=== PATIENT | female | born 1980 | race Caucasian/White ===

== ENCOUNTER 2017-11-28 17:30 | Emergency (ER) | payer OTHER ==
[2017-11-28 17:47] VITALS: BP 94/59
--- NOTE | 2017-11-28 17:47 | UC ---
Ear Complaint HPI - HPI Summary HPI Summary: 37 yo female presents with right ear pain for the last 3 days. Also has a crusty rash/scab to the right corner of her mouth which has been there for abut a week to 10 days. Denies fever, chills, sinus symptoms, sore throat, cough, SOB , chest pain. - History of Current Complaint Chief Complaint: UCGeneralIllness Stated Complaint: EAR COMPLAINT Time Seen by Provider: 11/28/17 17:47 Hx Obtained From: Patient Hx Last Menstrual Period: 11/26/17 Onset/Duration: Gradual Onset Severity Initially: Mild Severity Currently: Mild Pain Intensity: 3 Pain Scale Used: 0-10 Numeric - Allergies/Home Medications Allergies/Adverse Reactions: Allergies Allergy/AdvReac Type Severity Reaction Status Date / Time sulfamethoxazole Allergy Anaphylatic Verified 11/28/17 17:39 [From Bactrim] Shock trimethoprim [From Bactrim] Allergy Anaphylatic Verified 11/28/17 17:39 Shock Home Medications: Home Medications Mite,D.farinae-D.pteronyssinus [Odactra 12 Sq-Hdm] 1 sub SL DAILY 11/28/17 [ History Confirmed 11/28/17] OLANzapine TAB* [Zyprexa 10 MG TAB*] 10 mg PO DAILY 11/28/17 [History Confirmed 11/28/17] PMH/Surg Hx/FS Hx/Imm Hx Previously Healthy: Yes Psychological History: Bipolar Disorder Other History Of: Negative For: Anticoagulant Therapy - Surgical History Surgical History: None - Family History Known Family History: Positive: None - Social History Occupation: Employed Full-time Lives: With Family Alcohol Use: None Substance Use Type: None Smoking Status (MU): Former Smoker - Immunization History Most Recent Tetanus Shot: pt does not know Review of Systems Constitutional: Negative Skin: Other - Rash right mouth Eyes: Negative ENT: Ear Ache Respiratory: Negative Cardiovascular: Negative Gastrointestinal: Negative Neurovascular: Negative Neurological: Negative Psychological: Negative All Other Systems Reviewed And Are Negative: Yes Physical Exam - Summary Physical Exam Summary: GENERAL: NAD. WDWN. No pain distress. SKIN: Right corner of mouth: honey-crusted lesion approx 4mm in size. NTTP. No active drainage or bleeding. HEENT: Head: AT/NC Eyes: EOM intact. Conjunctiva clear without inflammation or discharge. Ears: Hearing grossly normal. TMs intact, no bulging, erythema, or edema. Nose: Nasal mucosa pink and moist. NTTP maxillary and frontal sinus. Throat: Posterior oropharynx without exudates, erythema, or tonsillar enlargement. Uvula midline. NECK: Supple. Nontender. No lymphadenopathy. CHEST: CTAB. No r/r/w. No accessory muscle use. Breathing comfortably and in no distress. CV: RRR. Without m/r/g. Pulses intact. Brisk cap refill. NEURO: Alert. CN II-XII grossly intact. PSYCH: Age appropriate behavior. Triage Information Reviewed: Yes Vital Signs: Initial Vital Signs Temp 98 F 11/28/17 17:41 Pulse 72 11/28/17 17:41 Resp 18 11/28/17 17:41 BP 94/59 11/28/17 17:41 Pulse Ox 100 11/28/17 17:41 Ear Complaint Course/Dx - Course Course Of Treatment: Impetigo - bactroban. - Differential Dx/Diagnosis Provider Diagnoses: Impetigo Discharge - Sign-Out/Discharge Documenting (check all that apply): Discharge/Admit/Transfer - Discharge Plan Condition: Stable Disposition: HOME Prescriptions: Mupirocin 2% OINT* [Bactroban 2 % Oint*] 1 applic TOPICAL BID #1 tube Patient Education Materials: Impetigo (ED) Referrals: Casi Gutierrez MD [Primary Care Provider] - Additional Instructions: If you develop a fever, shortness of breath, chest pain, new or worsening symptoms - please call your PCP or go to the ED. - Billing Disposition and Condition Condition: STABLE Disposition: HOME
== END 2017-11-28 18:12 | disposition home or self-care (01) ==
LOC: UCEAST 17:30
DX: L01.00 Impetigo, unspecified (principal); Z88.1 Allergy status to other antibiotic agents; Z87.891 Personal history of nicotine dependence
CPT/HCPCS: 99212; G0463

== ENCOUNTER 2018-10-21 17:59 | Emergency (ER) | payer OTHER ==
[2018-10-21 20:25] VITALS: BP 105/62
--- NOTE | 2018-10-21 21:11 | UC ---
Hand/Wrist HPI - HPI Summary HPI Summary: 37-year-old female presents with complaints of right ulnar hand pain. States approximately a week and a half ago she became angry and punched a wooden bedside stand with her right hand. States had some pain and swelling initially after the injury however pain did improve. States today she started noticing some more discomfort in the hand especially when doing some repetitive motion activities. Denies ecchymosis, erythema, edema, numbness or tingling. - History Of Current Complaint Chief Complaint: UCUpperExtremity Stated Complaint: HAND INJURY Time Seen by Provider: 10/21/18 20:29 Hx Obtained From: Patient Hx Last Menstrual Period: [id number] Pain Intensity: 1 - Allergies/Home Medications Allergies/Adverse Reactions: Allergies Allergy/AdvReac Type Severity Reaction Status Date / Time sulfamethoxazole Allergy Anaphylatic Verified 10/21/18 20:26 [From Bactrim] Shock trimethoprim [From Bactrim] Allergy Anaphylatic Verified 10/21/18 20:26 Shock PMH/Surg Hx/FS Hx/Imm Hx Psychological History: Schizophrenia Other History Of: Negative For: Anticoagulant Therapy - Surgical History Surgical History: None - Family History Known Family History: Positive: Non-Contributory - Social History Occupation: Employed Full-time Lives: With Family Alcohol Use: None Substance Use Type: None Smoking Status (MU): Former Smoker - Immunization History Most Recent Tetanus Shot: pt does not know Review of Systems All Other Systems Reviewed And Are Negative: Yes Constitutional: Positive: Negative Skin: Negative: Rash, Bruising Respiratory: Positive: Negative Cardiovascular: Positive: Negative Gastrointestinal: Positive: Negative Genitourinary: Positive: Negative Motor: Negative: Weakness Neurovascular: Negative: Decreased Sensation Musculoskeletal: Positive: Other: - See HPI Neurological: Positive: Negative Is Patient Immunocompromised?: No Physical Exam - Summary Physical Exam Summary: GENERAL APPEARANCE: Well developed, well nourished, alert and cooperative, and appears to be in no acute distress. CARDIAC: Normal S1 and S2. No S3, S4 or murmurs. Rhythm is regular. There is no peripheral edema, cyanosis or pallor. Extremities are warm and well perfused. Capillary refill is less than 2 seconds. Peripheral pulses intact. LUNGS: Clear to auscultation without rales, rhonchi, wheezing or diminished breath sounds. ABDOMEN: Positive bowel sounds. Soft, nondistended, nontender. No guarding or rebound. No masses or hepatosplenomegally. MUSKULOSKELETAL: ROM intact to all extremities. No joint erythema or tenderness. Normal muscular development. EXTREMITIES: No point tenderness, decreased range of motion, ecchymosis, or edema of the right hand. Circulation and sensation were intact. SKIN: Skin normal color, texture and turgor with no lesions or eruptions. Triage Information Reviewed: Yes Vital Signs: Initial Vital Signs Temp 98.8 F 10/21/18 20:17 Pulse 66 10/21/18 20:17 Resp 16 10/21/18 20:17 BP 105/62 10/21/18 20:17 Pulse Ox 99 10/21/18 20:17 Vital Signs Reviewed: Yes Hand/Wrist Course/Dx - Course Course Of Treatment: 37-year-old female presents with complaints of right ulnar hand pain. States approximately a week and a half ago she became angry and punched a wooden bedside stand with her right hand. States had some pain and swelling initially after the injury however pain did improve. States today she started noticing some more discomfort in the hand especially when doing some repetitive motion activities. Denies ecchymosis, erythema, edema, numbness or tingling. Afebrile. Vital signs stable. Exam was essentially unremarkable with no point tenderness, decreased range of motion, ecchymosis, or edema of the right hand. Circulation and sensation were intact. X-ray was negative for fracture. Recommending conservative treatment for a contusion of the right hand. She is to follow-up with her primary care provider in 7 days if symptoms do not improve. anticipatory guidance and warning symptoms reviewed with the patient. Verbalized understanding and agrees to plan of care. - Differential Dx/Diagnosis Differential Diagnosis/HQI/PQRI: Contusion, Dislocation, Fracture Provider Diagnosis: Contusion of right hand Discharge - Sign-Out/Discharge Documenting (check all that apply): Patient Departure All imaging exams completed and their final reports reviewed: No - Discharge Plan Condition: Stable Disposition: HOME Patient Education Materials: Contusion in Adults (ED) Referrals: Otilia Segundo NP [Primary Care Provider] - 7 Days (If no improvement.) Additional Instructions: The x-ray performed in the clinic tonight showed no evidence of a fracture. I suspect that you have a contusion of the hand. Rest the hand. Avoid heavy lifting or strenuous activities. Apply ice for 15-20 minutes to the affected area for 15-20 minutes at least 4 times a day for next few days. Keep the hand elevated at the level of your heart to reduce any swelling. Take acetaminophen (Tylenol) or ibuprofen (Advil, Motrin) according to directions as needed for pain. Follow up with your primary care provider in 7 days if no improvement in symptoms. - Billing Disposition and Condition Condition: STABLE Disposition: Home
== END 2018-10-21 21:30 | disposition home or self-care (01) ==
LOC: UCEAST 17:59
DX: S60.221A Contusion of right hand, initial encounter (principal); W22.09XA Striking against other stationary object, initial encounter; Y92.9 Unspecified place or not applicable; Z88.2 Allergy status to sulfonamides; Z87.891 Personal history of nicotine dependence
CPT/HCPCS: 99211; G0463

== ENCOUNTER 2019-01-05 19:29 | Emergency (ER) | payer OTHER ==
--- NOTE | 2019-01-05 19:45 | UC ---
Complaint Female HPI - HPI Summary HPI Summary: 38 yo female presents with lower abdominal pain. She tells me that for the last 3-4 days she has been having lower abdominal cramping. She mentions that she has been urinating more frequently and is concerned she may have a UTI. She also notes some vaginal discharge with a "different" odor. Her LMP was 1 month ago and she states she is 2-3 days late for this this month. Her last sexual intercourse with a male partner was 2 months ago, but has had a period since that time and said that pt was "clean". She did have sexual intercourse with a new female about a month ago and states toys were used and she is unsure if the toys or partner was clean. She also mentions that she has been feeling fatigued and generally "achy" over the last week or so. Denies fever, chills, SOB, n/v/d/ c, flank pain, or hematuria. - History Of Current Complaint Stated Complaint: ABD PAIN, FREQUENT URINATION Time Seen by Provider: 01/05/19 19:45 Hx Obtained From: Patient Hx Last Menstrual Period: [id number] Onset/Duration: Gradual Onset Severity Initially: Mild Severity Currently: Mild Pain Intensity: 3 Pain Scale Used: 0-10 Numeric - Allergies/Home Medications Allergies/Adverse Reactions: Allergies Allergy/AdvReac Type Severity Reaction Status Date / Time sulfamethoxazole Allergy Anaphylatic Verified 01/05/19 20:12 [From Bactrim] Shock trimethoprim [From Bactrim] Allergy Anaphylatic Verified 01/05/19 20:12 Shock PMH/Surg Hx/FS Hx/Imm Hx Psychological History: Bipolar Disorder Other History Of: Negative For: Anticoagulant Therapy - Surgical History Surgical History: None - Family History Known Family History: Positive: None - Social History Lives: With Family Alcohol Use: None Substance Use Type: None Smoking Status (MU): Former Smoker - Immunization History Most Recent Tetanus Shot: pt does not know Review of Systems All Other Systems Reviewed And Are Negative: Yes Constitutional: Positive: Fatigue Skin: Positive: Negative Respiratory: Positive: Negative Cardiovascular: Positive: Negative Gastrointestinal: Positive: Abdominal Pain Genitourinary: Positive: Frequency, Vaginal/Penile Discharge Neurovascular: Positive: Negative Neurological: Positive: Negative Psychological: Positive: Negative Physical Exam - Summary Physical Exam Summary: GENERAL: NAD. WDWN. No pain distress. SKIN: No rashes, sores, lesions, or open wounds. NECK: Supple. Nontender. No lymphadenopathy. CHEST: CTAB. No r/r/w. No accessory muscle use. Breathing comfortably and in no distress. CV: RRR. Without m/r/g. Pulses intact. Cap refill <2seconds ABDOMEN: Soft. NTTP. No distention or guarding. No CVA tenderness. Bowel sounds present NEURO: Alert. PSYCH: Age appropriate behavior. Triage Information Reviewed: Yes Vital Signs: Laboratory Tests 01/05/19 01/05/19 19:59 20:02 POC Urine Color Yellow POC Urine Clarity Clear POC Urine pH 6.5 POC Ur Specif [place] 1.010 POC Urine Protein Negative POC Ur Glucose (UA) Negative POC Urine Ketones Negative POC Urine Blood Trace-lysed A POC Urine Nitrite Negative POC Urine Bilirubin Negative POC Urine Urobilinogen 0.2 POC U Leukocyte Esteras Negative POC Ur Test Negative Vital Signs: Temp Pulse Resp BP Pulse Ox 100.0 F 75 16 93/59 99 01/05/19 20:06 01/05/19 20:06 01/05/19 20:06 01/05/19 20:06 01/05/19 20:06 Vital Signs Reviewed: Yes Pelvic Exam: Positive: External Exam Normal, No Cerv. Motion Tender, No Masses, Discharge - Thick yellow/white from cervix, Other - Assisted by Kayleigh SUTHERLAND. Negative: Active Bleeding, Blood, Lesions, Mass, Tender w/ Cervical Motion, Tender Adnexa, Tender Uterus, Ulcers Complaint Female Dx - Course Course Of Treatment: BP slightly low today, but trending over the last few months from her past visits - this seems her average. Her UA and are negative. Her pelvic exam revealed thick yellow/white discharge, which seems most consistent with vaginosis and/or chlamydia. Cultures were obtained for affirm and GC/C. Given her recent sexual intercourse with a new partner - I recommended treatment for GC/C at this time and she was agreeable to this. In the clinic pt was given ceftriaxone 250mg and azithroymcin 1gm. Will also rx for flagyl to treat for BV. Will call her with culture results. - Differential Dx/Diagnosis Provider Diagnosis: Lower abdominal pain, Vaginal discharge Discharge - Sign-Out/Discharge Documenting (check all that apply): Patient Departure All imaging exams completed and their final reports reviewed: No Studies - Discharge Plan Condition: Stable Disposition: HOME Prescriptions: metroNIDAZOLE [Flagyl] 500 mg PO BID #14 tablet Patient Education Materials: Bacterial Vaginosis (ED), Chlamydia (ED) Referrals: Casi Gutierrez MD [Primary Care Provider] - Additional Instructions: If you develop a fever, shortness of breath, chest pain, new or worsening symptoms - please call your PCP or go to the ED immediately. 1) Your exam today showed some thick yellowish/white discharge from your cervix. This appears most consistent with bacterial vaginosis or chlamydia. 2) You were treated for gonorrhea and chlamydia in the clinic today 3) The prescription for Flagyl is to treat bacterial vaginosis 4) Samples were obtained today to test for yeast, gonorrhea, chlamydia, and bacterial vaginosis and should be back within 2-3 days. Please call our clinic if you have not heard from us by that time regarding your results. - Billing Disposition and Condition Condition: STABLE Disposition: Home
[2019-01-05 20:11] VITALS: BP 93/59
[2019-01-05] MEDS ORDERED: Lidocaine 1%** 5 ML VIAL IM ONE (20:44)
[2019-01-05] MEDS ORDERED: Azithromycin TAB* 250 MG PO ONE (20:44)
[2019-01-05] MEDS ORDERED: cefTRIAXone VIAL(*) 250 MG VIAL IM ONE (20:44)
[2019-01-07 12:55] LABS: Trichomonas vaginalis Result Negative (Negative)
[2019-01-07 13:15] LABS: Neisseria gonorrhoeae (GC) RNA Negative (Negative)
--- NOTE | 2019-01-08 19:12 | UC ---
- Progress Note Progress Note: Pt called to ask about results Notified of neg Gc/C but positive BV. She has not started flagyl yet as she wishes to drink this weekend - I advised her to try OTC Course/Dx - Diagnoses Provider Diagnoses: Lower abdominal pain, Vaginal discharge Discharge - Sign-Out/Discharge All imaging exams completed and their final reports reviewed: No Studies - Discharge Plan Condition: Stable Disposition: HOME Prescriptions: metroNIDAZOLE [Flagyl] 500 mg PO BID #14 tablet Patient Education Materials: Bacterial Vaginosis (ED), Chlamydia (ED) Referrals: Casi Gutierrez MD [Primary Care Provider] - Additional Instructions: If you develop a fever, shortness of breath, chest pain, new or worsening symptoms - please call your PCP or go to the ED immediately. 1) Your exam today showed some thick yellowish/white discharge from your cervix. This appears most consistent with bacterial vaginosis or chlamydia. 2) You were treated for gonorrhea and chlamydia in the clinic today 3) The prescription for Flagyl is to treat bacterial vaginosis 4) Samples were obtained today to test for yeast, gonorrhea, chlamydia, and bacterial vaginosis and should be back within 2-3 days. Please call our clinic if you have not heard from us by that time regarding your results. - Billing Disposition and Condition Condition: STABLE Disposition: Home
== END 2019-01-05 21:40 | disposition home or self-care (01) ==
LOC: UCEAST 19:29
DX: R10.10 Upper abdominal pain, unspecified (principal); N89.8 Other specified noninflammatory disorders of vagina; F31.9 Bipolar disorder, unspecified; Z87.891 Personal history of nicotine dependence; Z88.2 Allergy status to sulfonamides
CPT/HCPCS: 81003; 84702; 87086; 87480; 87491; 87510; 87591; 87661; 96372; 99212; A9270-GY; G0463; J0696

== ENCOUNTER 2019-04-26 17:46 | Emergency (ER) | payer OTHER ==
[2019-04-26 18:09] VITALS: BP 113/61
--- NOTE | 2019-04-26 18:47 | UC ---
Throat Pain/Nasal Brad HPI - HPI Summary HPI Summary: 38-year-old female comes in with a chief complaint of upper respiratory tract infection symptoms for 17 days. She has yellow rhinorrhea has a lot of sinus pressure she has postnasal drip she does have a cough. With the cough she was able to clear her secretions in her chest. Not short of breath other than the coughing episodes. No recent fevers. She has tried some by mouth Sudafed which doesn't seem to help much. - History of Current Complaint Chief Complaint: UCRespiratory Stated Complaint: COLD AND A COUGH Time Seen by Provider: 04/26/19 18:37 Hx Last Menstrual Period: 2 wks ago Pain Intensity: 0 - Allergies/Home Medications Allergies/Adverse Reactions: Allergies Allergy/AdvReac Type Severity Reaction Status Date / Time sulfamethoxazole Allergy Anaphylatic Verified 04/26/19 18:09 [From Bactrim] Shock trimethoprim [From Bactrim] Allergy Anaphylatic Verified 04/26/19 18:09 Shock PMH/Surg Hx/FS Hx/Imm Hx Previously Healthy: Yes Other History Of: Negative For: Anticoagulant Therapy - Surgical History Surgical History: None - Family History Known Family History: Positive: None, Non-Contributory - Social History Alcohol Use: Rare Substance Use Type: None Smoking Status (MU): Former Smoker - Immunization History Most Recent Tetanus Shot: pt does not know Review of Systems All Other Systems Reviewed And Are Negative: Yes Constitutional: Positive: Other - SEE HPI Skin: Positive: Negative Eyes: Positive: Negative ENT: Positive: Sore Throat, Nasal Discharge, Sinus Congestion, Sinus Pain/ Tenderness Respiratory: Positive: Cough, Other - SEE HPI Cardiovascular: Positive: Negative Gastrointestinal: Positive: Negative Motor: Positive: Negative Neurovascular: Positive: Negative Musculoskeletal: Positive: Negative Neurological: Positive: Negative Psychological: Positive: Negative Is Patient Immunocompromised?: No Physical Exam Triage Information Reviewed: Yes Appearance: No Pain Distress, Well-Nourished, Ill-Appearing - MILD Vital Signs: Initial Vital Signs Temp 98.9 F 04/26/19 18:07 Pulse 80 04/26/19 18:07 Resp 16 04/26/19 18:07 BP 113/61 04/26/19 18:07 Pulse Ox 99 04/26/19 18:07 Vital Signs Reviewed: Yes Eyes: Positive: Conjunctiva Clear ENT: Positive: Pharyngeal erythema, Nasal congestion, Nasal drainage, TMs normal Neck: Positive: Supple Respiratory: Positive: Lungs clear, Normal breath sounds, No respiratory distress Cardiovascular: Positive: RRR Musculoskeletal: Positive: Strength Intact, ROM Intact Neurological: Positive: Alert Psychological: Positive: Age Appropriate Behavior Skin Exam: Normal Throat Pain/Nasal Course/Dx - Differential Dx/Diagnosis Provider Diagnosis: Sinusitis Discharge ED - Sign-Out/Discharge Documenting (check all that apply): Patient Departure All imaging exams completed and their final reports reviewed: No Studies - Discharge Plan Condition: Stable Disposition: HOME Prescriptions: Amoxicillin/Clavulanate TAB* [Augmentin TAB 875*] 875 mg PO BID #20 tab Fluticasone NASAL SPRAY 50MCG* [Flonase NASAL SPRAY 50MCG*] 2 spray BOTH NARES DAILY #1 btl Patient Education Materials: Sinusitis (ED) Referrals: Casi Gutierrez MD [Primary Care Provider] - Additional Instructions: FOLLOW UP WITH YOUR DOCTOR IF NOT COMPLETELY IMPROVED. GET RECHECKED SOONER IF YOUR CONDITION WORSENS OR ANY QUESTIONS OR CONCERNS. - Billing Disposition and Condition Condition: STABLE Disposition: Home
== END 2019-04-26 19:01 | disposition home or self-care (01) ==
LOC: UCEAST 17:46
DX: J32.9 Chronic sinusitis, unspecified (principal); Z88.2 Allergy status to sulfonamides; Z87.891 Personal history of nicotine dependence
CPT/HCPCS: 99212; G0463

== ENCOUNTER 2019-05-07 16:01 | Emergency (ER) | payer OTHER ==
[2019-05-07 16:25] VITALS: BP 107/67
--- NOTE | 2019-05-07 16:50 | UC ---
Complaint Female HPI - HPI Summary HPI Summary: The patient is a 38-year-old female with vaginal burning 3 days. Today she just finished up a course of Augmentin for a sinus infection. She has no dysuria. She denies any vaginal itching. She has never had a vaginal yeast infection. - History Of Current Complaint Chief Complaint: UCGU Stated Complaint: DISCOMFORT Hx Obtained From: Patient Hx Last Menstrual Period: 04/13/19 Onset/Duration: Gradual Onset, Lasting Days Timing: Constant Severity Initially: Mild Severity Currently: Moderate Pain Intensity: 4 Pain Scale Used: 0-10 Numeric Character: Burning Aggravating Factor(s): Nothing Alleviating Factor(s): Nothing Associated Signs And Symptoms: Positive: Vaginal Discharge - ?. Negative: Fever , Back Pain, Vaginal Bleeding/Discharge, Nausea, Vomiting(# Of Episodes =), Genital Swelling, Genital Blisters, Retained Foregin Body (Specify) - Allergies/Home Medications Allergies/Adverse Reactions: Allergies Allergy/AdvReac Type Severity Reaction Status Date / Time sulfamethoxazole Allergy Anaphylatic Verified 05/07/19 16:25 [From Bactrim] Shock trimethoprim [From Bactrim] Allergy Anaphylatic Verified 05/07/19 16:25 Shock PMH/Surg Hx/FS Hx/Imm Hx Previously Healthy: Yes Other History Of: Negative For: Anticoagulant Therapy - Surgical History Surgical History: None - Family History Known Family History: Positive: Non-Contributory - Social History Alcohol Use: Rare Substance Use Type: None Smoking Status (MU): Former Smoker Length of Time of Smoking/Using Tobacco: 2 months - Immunization History Most Recent Tetanus Shot: pt does not know Review of Systems All Other Systems Reviewed And Are Negative: Yes Constitutional: Positive: Negative Skin: Positive: Negative Eyes: Positive: Negative ENT: Positive: Negative Respiratory: Positive: Negative Cardiovascular: Positive: Negative Gastrointestinal: Positive: Negative Genitourinary: Positive: Negative Motor: Positive: Negative Neurovascular: Positive: Negative Musculoskeletal: Positive: Negative Neurological: Positive: Negative Psychological: Positive: Negative Physical Exam Triage Information Reviewed: Yes Appearance: Well-Appearing, No Pain Distress, Well-Nourished Vital Signs: Initial Vital Signs Temp 99.5 F 05/07/19 16:17 Pulse 71 05/07/19 16:17 Resp 16 05/07/19 16:17 BP 107/67 05/07/19 16:17 Pulse Ox 100 05/07/19 16:17 Vital Signs Reviewed: Yes Eyes: Positive: Conjunctiva Clear ENT: Positive: Hearing grossly normal. Negative: Nasal congestion, Nasal drainage, Trismus, Muffled voice, Hoarse voice Neck: Positive: Supple, Nontender, No Lymphadenopathy Respiratory: Positive: Lungs clear, Normal breath sounds, No respiratory distress Cardiovascular: Positive: RRR, No Murmur, Pulses Normal Pelvic Exam: Positive: Discharge - thin vaginal d/c. Negative: External Exam Normal - white curdy d/c on vulva/erythems Musculoskeletal: Positive: ROM Intact, No Edema Neurological: Positive: Alert Psychological Exam: Normal Skin Exam: Normal Complaint Female Dx - Differential Dx/Diagnosis Provider Diagnosis: Vulvovaginitis due to yeast Discharge ED - Sign-Out/Discharge Documenting (check all that apply): Patient Departure All imaging exams completed and their final reports reviewed: No Studies - Discharge Plan Condition: Stable Disposition: HOME Prescriptions: Fluconazole 150 MG (NF) [Diflucan 150 mg (NF)] 150 mg PO ONCE #2 tab Patient Education Materials: Vaginitis (ED) Referrals: Casi Gutierrez MD [Primary Care Provider] - If Needed - Billing Disposition and Condition Condition: STABLE Disposition: Home
[2019-05-11 12:24] LABS: Chlamydia trachomatis NAA Negative (Negative); Neisseria gonorrhoeae (GC) NAA Negative (Negative)
== END 2019-05-07 17:15 | disposition home or self-care (01) ==
LOC: UCEAST 16:01
DX: B37.3 Candidiasis of vulva and vagina (principal); Z88.1 Allergy status to other antibiotic agents; Z88.2 Allergy status to sulfonamides; Z87.891 Personal history of nicotine dependence
CPT/HCPCS: 87480; 87491; 87510; 87591; 87661; 99212; G0463

== ENCOUNTER 2019-06-16 17:06 | Emergency (ER) | payer OTHER ==
[2019-06-16 18:46] VITALS: BP 114/72
[2019-06-16 19:06] LABS: Influenza A Molecular NEGATIVE (Negative); Influenza B Molecular NEGATIVE (Negative)
--- NOTE | 2019-06-16 19:09 | UC ---
FLU HPI - HPI Summary HPI Summary: 38 yo [facility] school [employer] with 5 day hx of upper respiratory symptoms and mild cough. She has a hx of chronic cough, evaluated by Asthma and Allergy, without improvement with antihistamines or albuterol. She comes today because of recognition of fever, although most of her respiratory symptoms are subsiding. She does not have shortness of breath, chest pain, abdominal pain, nausea or vomiting. - History of Current Complaint Chief Complaint: UCRespiratory Stated Complaint: RESP COMPLAINT, FEVER Hx Obtained From: Patient Hx Last Menstrual Period: 06/16/2019 Onset/Duration: Gradual Onset, Lasting Days - 5 Pain Intensity: 0 Associated Signs & Symptoms: Positive: T Max - 101.5, Myalgia - Allergy/Home Medications Allergies/Adverse Reactions: Allergies Allergy/AdvReac Type Severity Reaction Status Date / Time sulfamethoxazole Allergy Anaphylatic Verified 06/16/19 18:43 [From Bactrim] Shock trimethoprim [From Bactrim] Allergy Anaphylatic Verified 06/16/19 18:43 Shock PMH/Surg Hx/FS Hx/Imm Hx Previously Healthy: Yes Endocrine History: Other - thyroid enlargement. Psychological History: Other - Schiz-affective disorder Other History Of: Negative For: Anticoagulant Therapy - Surgical History Surgical History: None - Family History Known Family History: Positive: Other - mother has enlarged thyroid, normal function. - Social History Occupation: Employed Full-time Alcohol Use: Rare Substance Use Type: None Smoking Status (MU): Former Smoker Length of Time of Smoking/Using Tobacco: 2 months - Immunization History Most Recent Tetanus Shot: pt does not know Review of Systems All Other Systems Reviewed And Are Negative: Yes Constitutional: Positive: Fever, Fatigue Skin: Positive: Negative. Negative: Rash Eyes: Positive: Negative ENT: Positive: Nasal Discharge, Sinus Congestion Respiratory: Positive: Cough. Negative: Shortness Of Breath Cardiovascular: Negative: Palpitations, Chest Pain Gastrointestinal: Positive: Negative Genitourinary: Positive: Negative Motor: Positive: Negative Neurovascular: Positive: Negative Musculoskeletal: Positive: Negative Neurological: Positive: Headache Psychological: Positive: Negative Physical Exam Triage Information Reviewed: Yes Appearance: No Pain Distress, Ill-Appearing - congested, looks mildly unwell. Vital Signs: Initial Vital Signs Temp 100.0 F 06/16/19 18:44 Pulse 97 06/16/19 18:44 Resp 18 12/04/19 18:44 BP 114/72 06/16/19 18:44 Pulse Ox 99 06/16/19 18:44 Eyes: Positive: Conjunctiva Clear ENT: Positive: Pharyngeal erythema, TMs normal. Negative: Tonsillar swelling Neck: Positive: Supple, Nontender, Other: - Enlarged right lobe of thyroid, soft and compressible. Respiratory: Positive: Lungs clear, Normal breath sounds Cardiovascular: Positive: RRR, No Murmur Abdomen Description: Positive: Nontender, No Organomegaly, Soft Musculoskeletal Exam: Normal Neurological Exam: Normal Psychological Exam: Normal Skin Exam: Normal Diagnostics - Laboratory Lab Results: Rapid flu negative Flu Course/Dx - Course Course Of Treatment: Continue symptomatic treatment of viral illness, with follow up if fever persists or symptoms progress. - Differential Dx/Diagnosis Differential Diagnosis/HQI/PQRI: Influenza, Pneumonia, Upper Respiratory Infection Provider Diagnosis: Viral syndrome Discharge ED - Sign-Out/Discharge Documenting (check all that apply): Patient Departure All imaging exams completed and their final reports reviewed: No Studies - Discharge Plan Condition: Stable Disposition: HOME Patient Education Materials: Viral Syndrome (ED) Forms: *Work Release Referrals: Casi Gutierrez MD [Primary Care Provider] - Additional Instructions: Continue symptomatic treatment, with use of ibuprofen or acetaminophen for control of fever. Off work tomorrow. As reviewed, your thyroid check was normal last month, with a TSH of 0.87. - Billing Disposition and Condition Condition: STABLE Disposition: Home
== END 2019-06-16 19:48 | disposition home or self-care (01) ==
LOC: UCEAST 17:06
DX: B34.9 Viral infection, unspecified (principal); R09.81 Nasal congestion; F20.9 Schizophrenia, unspecified; R53.83 Other fatigue; R05 Cough; Z88.1 Allergy status to other antibiotic agents; Z88.2 Allergy status to sulfonamides; Z87.891 Personal history of nicotine dependence
CPT/HCPCS: 99211; G0463

== ENCOUNTER 2019-08-04 18:06 | Emergency (ER) | payer OTHER ==
--- OUTSIDE RECORDS SUMMARY | 2019-08-04 20:18 | XMS REPORT | Continuity of Care Document ---
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 [phone] Medicine Problems Active Problems Provider Date Allergic urticaria BARBER Newsome Onset: 07/21/2019 Mild intermittent asthma BARBER Newsome Onset: 07/21/2017 Uncomplicated moderate persistent Dnonie Dawson MD Onset: 06/18/2017 asthma Allergic rhinitis Donnie Dawson MD Onset: 06/18/2017 Allergic rhinitis due to pollen Donnie Dawson MD Onset: 06/18/2017 Social History Type Date Description Comments Sex Unknown Tobacco Use Start: Unknown Quit smoking last year Smoking Status Reviewed: 07/21/19 Quit smoking last year Allergies, Adverse Reactions, Alerts Active Allergies Reaction Severity Comments Date Sulfamethoxazole / Trimethoprim 06/18/2017 Inactive Allergies NKDA 06/18/2017 Medications Active Medications SIG Qnty Indications Ordering Provider Date Azelastine HCL instill 1-2 30ml J30.1 Donnie Coffey 07/21/2019 (Nasal) sprays into each MD Samir 137mcg/[place] nostril twice a Solution day. Cetirizine HCL take one tablet 30tabs J30.1 Mookophblayne Coffey 07/21/2019 10mg by mouth every MD Samir Tablets day at bedtime Epipen 2-Neto as directed 2units Donnie Coffey 10/30/2017 MD Samir 0.3mg/0.3ML Solution Auto-Inject Olanzapine Unknown 10mg Tablets Immunizations Description No Information Available Vital Signs Date Vital Result Comment 07/21/2019 8:45am BP Systolic 97 mmHg BP Diastolic 66 mmHg Height 68 inches 5'8" Weight 175.00 lb BMI (Body Mass Index) 26.6 kg/m2 Heart Rate 70 /min Body Temperature 97.7 F O2 % BldC Oximetry 98 % 01/23/2018 3:21pm BP Systolic 102 mmHg BP Diastolic 68 mmHg Height 68 inches 5'8" Weight 172.00 lb BMI (Body Mass Index) 26.1 kg/m2 Heart Rate 80 /min Respiratory Rate 18 /min Body Temperature 97.5 F O2 % BldC Oximetry 99 % Results Description No Information Available Procedures Date Code Description Status 07/21/2019 34907 Nitric Oxide Gas Determination Completed 07/21/2019 16004 Spirometry Completed Medical Devices Description No Information Available Encounters Type Date Location Provider Dx Diagnosis Office Visit 07/21/2019 [place] Angela Quintero30.1 Allergic rhinitis due 8:30a BARBER Sandoval to pollen J30.89 Other allergic rhinitis J45.20 Mild intermittent asthma, uncomplicated L50.0 Allergic urticaria Assessments Date Code Description Provider 07/21/2019 J30.1 Allergic rhinitis due to pollen MILAGROS Newsome 07/21/2019 J30.89 Other allergic rhinitis BARBER Newsome 07/21/2019 J45.20 Mild intermittent asthma, BARBER Newsome uncomplicated 07/21/2019 L50.0 Allergic urticaria BARBER Newsome Plan of Treatment Future Appointment(s):08/18/2019 8:30 am - BARBER Newsome at [id number]/21/2019 - RINA NewsomeCJ30.1 Allergic rhinitis due to pollenNew Medication:Azelastine HCL (Nasal) 137 mcg/[place] - instill 1-2 sprays into each nostril twice a day.Cetirizine HCL 10 mg - take one tablet by mouth every day at bedtimeComments:Patient with poorly controlled allergic rhinitis and post nasal drip. I will give Azelastine NS for daily prophylaxis of the nose. I will give Cetirizine for breakthrough nasal allergy symptoms. Patient is not interested in restarting Odactra, as she did not find therapy helpful. Patient may be interested in subcutaneous immunotherapy. She would like to try medications for the next few weeks and thendecide if she will pursue immunotherapy.Follow up:2-3 weeks.J30.89 Other allergic rhinitisComments: Reviewed environmental controls for dust and dust mites. Start Azelastine NS and Cetirizine as prescribed.J45.20 Mild intermittent asthma, uncomplicatedComments:Patient's chronic cough has significantly improved since she stopped smoking last year. Today's PFT is within normal limits. NIOX is also normal at 9ppb. She continues to have an occasional throat clearing cough, which I suspect is due to post nasal drip and poorly controlled allergic rhinitis. I willgive Azelastine NS (patient is not willing to try a nasal steroid spray). I will also give Cetirizine for breakthrough nasal allergy symptoms. I will re-evaluate in 2-3 weeks.Follow up:2-3 weeks.L50.0 Allergic urticariaComments:Patient with intermittent hives. She is concerned about food allergies. I will have patient return for food allergy skin testing. I will discuss an elimination diet of any positive foods on testing. I will give Cetirizine for daily suppression of her hives. Patient instructed to hold Cetirizine x48 hours prior to her skin testing.Follow up:Food Skin Test #70 Functional Status Description No Information Available Mental Status Description No Information Available Referrals Description No Information Available
[2019-08-04 20:44] VITALS: BP 115/75
[2019-08-04 20:57] LABS: Influenza A Molecular NEGATIVE (Negative); Influenza B Molecular NEGATIVE (Negative)
--- NOTE | 2019-08-04 21:24 | UC ---
FLU HPI - HPI Summary HPI Summary: 2 DAYS OF COUGH, SINUS CONGESTION, FATIGUE AND LOW-GRADE FEVER. NO NAUSEA/ VOMITING. NO SORE THROAT OR EAR PAIN. IS CONCERNED ABOUT FLU. - History of Current Complaint Chief Complaint: UCRespiratory Stated Complaint: RESP COMPLAINT Time Seen by Provider: 08/04/19 21:00 Hx Obtained From: Patient Hx Last Menstrual Period: Onset/Duration: Gradual Onset, Lasting Days, Still Present Severity Currently: Moderate Severity Initially: Moderate Pain Intensity: 0 Pain Scale Used: 0-10 Numeric Associated Signs & Symptoms: Positive: Fever, Cough, Nasal Congestion, Headache. Negative: Myalgia - Allergy/Home Medications Allergies/Adverse Reactions: Allergies Allergy/AdvReac Type Severity Reaction Status Date / Time sulfamethoxazole Allergy Anaphylatic Verified 08/04/19 20:42 [From Bactrim] Shock trimethoprim [From Bactrim] Allergy Anaphylatic Verified 08/04/19 20:42 Shock PMH/Surg Hx/FS Hx/Imm Hx Psychological History: Depression, Bipolar Disorder Other History Of: Negative For: Anticoagulant Therapy - Surgical History Surgical History: None - Family History Known Family History: Positive: Other - mother has enlarged thyroid, normal function., Non-Contributory - Social History Alcohol Use: Rare Substance Use Type: None Smoking Status (MU): Former Smoker Length of Time of Smoking/Using Tobacco: 2 months - Immunization History Most Recent Tetanus Shot: pt does not know Review of Systems All Other Systems Reviewed And Are Negative: Yes Constitutional: Positive: Fever, Fatigue ENT: Positive: Sore Throat, Nasal Discharge Respiratory: Positive: Cough Cardiovascular: Positive: Negative Gastrointestinal: Positive: Negative Musculoskeletal: Negative: Myalgia Neurological: Positive: Headache Physical Exam Triage Information Reviewed: Yes Appearance: Well-Appearing, No Pain Distress, Well-Nourished Vital Signs: Initial Vital Signs Temp 100.7 F 08/04/19 20:42 Pulse 95 08/04/19 20:42 Resp 18 08/04/19 20:42 BP 115/75 08/04/19 20:42 Pulse Ox 95 08/04/19 20:42 Laboratory Tests 08/04/19 20:46 Influenza A (Rapid) Negative Influenza B (Rapid) Negative Vital Signs Reviewed: Yes Eyes: Positive: Conjunctiva Clear ENT: Positive: Hearing grossly normal, Pharynx normal, TMs normal Neck: Positive: Supple, Nontender, No Lymphadenopathy Respiratory Exam: Normal Cardiovascular Exam: Normal Abdomen Description: Positive: Soft Musculoskeletal: Positive: No Edema Neurological: Positive: Alert Psychological: Positive: Age Appropriate Behavior Skin: Negative: Rashes Flu Course/Dx - Course Course Of Treatment: FLU SWAB NEGATIVE. LIKELY VIRAL ETIOLOGY OF SYMPTOMS THAT SHOULD RESOLVE ON THEIR OWN WITH TIME. IBUPROFEN NEEDED FOR FEVER AND DISCOMFORT. REST, HYDRATION, FOLLOW-UP IF NOT IMPROVING EXPECTED OVER THE NEXT SEVERAL DAYS. - Differential Dx/Diagnosis Provider Diagnosis: Acute viral syndrome Discharge ED - Sign-Out/Discharge Documenting (check all that apply): Patient Departure All imaging exams completed and their final reports reviewed: No Studies - Discharge Plan Condition: Stable Disposition: HOME Patient Education Materials: Viral Syndrome (ED) Forms: *Work Release Referrals: Casi Gutierrez MD [Primary Care Provider] - If Needed Additional Instructions: FLU SWAB NEGATIVE. YOUR SYMPTOMS ARE LIKELY VIRALLY MEDIATED AND SHOULD RESOLVE ON THEIR OWN WITH TIME. NO INDICATION FOR ANTIBIOTICS AT PRESENT. REST, HYDRATE , OTC MEDS NEEDED. SEEK FOLLOW-UP IF YOUR FEVER DOESN'T BREAK OVER THE NEXT FEW DAYS. - Billing Disposition and Condition Condition: STABLE Disposition: Home
== END 2019-08-04 21:20 | disposition home or self-care (01) ==
LOC: UCEAST 18:06
DX: B34.9 Viral infection, unspecified (principal); R05 Cough; R09.81 Nasal congestion; R53.83 Other fatigue; J02.9 Acute pharyngitis, unspecified; R09.89 Other specified symptoms and signs involving the circulatory and respiratory systems; M79.10 Myalgia, unspecified site; R51 Headache; F31.9 Bipolar disorder, unspecified; Z88.2 Allergy status to sulfonamides; Z87.891 Personal history of nicotine dependence
CPT/HCPCS: 99211; G0463